=== PATIENT | female | born 1985 | race Caucasian/White ===

== ENCOUNTER 2017-04-10 01:18 | Observation (INO) | payer OTHER ==
[2017-04-10] MEDS ORDERED: Penicillin G Potassium 5 MILLUNITS in Sodium Chloride 0.9% 50 ML IV ONE (03:30)
[2017-04-10] MEDS ORDERED: Sodium Chloride 0.9% 10 ML Syringe FLUSH PRN (04:05)
[2017-04-10] MEDS ORDERED: Ondansetron 4 MG Tab.DIS PO PRN (04:05)
[2017-04-10] MEDS ORDERED: fentaNYL 100 MCG/2 ML SDV IVPUSH PRN (04:05)
--- NOTE | 2017-04-10 04:16 | PCM.LDHP ---
L&D History of Present Illness - General Date of Service: 04/10/17 (labor) Admit Problem/Dx: Patient Status Order with Admit Dx/Problem 04/10/17 04:05 Patient Status [ADT] Routine Admission Diagnosis/Problem Admission Diagnosis/Problem - planned Source of Information: Patient History Limitations: Reports: No Limitations - History of Present Illness Timing/Duration: Reports: minutes: (3) Location, : Reports: Abdomen Quality: Reports: Pressure Severity: Moderate Improves with: Reports: Movement Worsens with: Reports: None - Related Data Allergies/Adverse Reactions: Allergies Allergy/AdvReac Type Severity Reaction Status Date / Time No Known Allergies Allergy Verified 05/24/15 20:52 Home Medications: Home Meds Vit W-Ca,Fe,FA(<1 mg) [ Vitamins] 1 tab PO DAILY 05/24/15 [ History] Ranitidine HCl [Zantac] 150 mg PO DAILY 12/13/16 [History] Labetalol [Normodyne] 100 mg PO BID #60 tab 03/04/17 [Rx] Past Medical History HEENT History: Reports: Impaired Vision Other Genitourinary History: Recent UIT. 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 Psychiatric History: Reports: Anxiety Endocrine/Metabolic History: Reports: Diabetes, Gestational Other Endocrine/Metabolic History: GD in first . - Infectious Disease History Infectious Disease History: Reports: Chicken Pox Social & Family History - Family History Family Medical History: Noncontributory - Tobacco Use Smoking Status *Q: Never Smoker Years of Tobacco use: 5 Packs/Tins Daily: 0.2 Used Tobacco, but Quit: Yes Month Tobacco Last Used: August Second Hand Smoke Exposure: No - Caffeine Use Caffeine Use: Reports: Coffee - Alcohol Use Days Per Week of Alcohol Use: 0 - Recreational Drug Use Recreational Drug Use: No H&P Review of Systems - Review of Systems: Review Of Systems: See Below General: Reports: Decreased Appetite HEENT: Reports: No Symptoms Pulmonary: Reports: No Symptoms Cardiovascular: Reports: No Symptoms Gastrointestinal: Reports: No Symptoms Genitourinary: Reports: No Symptoms Musculoskeletal: Reports: No Symptoms Skin: Reports: No Symptoms Psychiatric: Reports: No Symptoms Neurological: Reports: No Symptoms Hematologic/Lymphatic: Reports: No Symptoms Immunologic: Reports: No Symptoms L&D Exam - Exam Exam: See Below - Vital Signs Vital Signs: Last Vital Signs Temp 98.3 F 04/10/17 01:23 Pulse 98 04/10/17 01:23 Resp 20 04/10/17 01:23 BP 139/82 04/10/17 01:23 Pulse Ox Weight: 265 lb - OB Specific Contraction Frequency (min): 1.5-4 Contraction Intensity: Mild to Moderate Heart Rate (FHR) Variability: Moderate (6-25 bmp) Presentation: Vertex - Lara Score Lara Score Cervix Position: Anterior Lara Score Consistency: Soft Lara Score Effacement: 51-70% Lara Score Dilation: 3-4 cm Lara Score 's Station: -2 Lara Score Total: 9 - Exam General: Alert, Oriented HEENT: PERRLA, Mucosa Moist & [place] Neck: Supple Lungs: Clear to Auscultation, Normal Respiratory Effort Cardiovascular: Regular Rate, Regular Rhythm GI/Abdominal Exam: Normal Bowel Sounds, Soft Genitourinary: Normal external exam, Cervical dilitation, Enlarged uterus Back Exam: Normal Inspection Extremities: Normal Inspection, Normal Range of Motion, Normal Capillary Refill Skin: Warm, Intact Neurological: Reflexes Equal Bilateral Psychiatric: Alert, Normal Affect, Normal Mood - Patient Data Lab Results Last 24 hrs: Laboratory Results - last 24 hr 04/10/17 Range/Units 01:24 Urine Color Yellow Urine Appearance Clear Urine pH 7.0 (4.5-8.0) Ur Specific [place] 1.010 (1.008-1.030) Urine Protein Negative (NEGATIVE) mg/dL Urine Glucose (UA) Normal (NEGATIVE) mg/dL Urine Ketones Negative (NEGATIVE) mg/dL Urine Occult Blood Negative (NEGATIVE) Urine Nitrite Negative (NEGATIVE) Urine Bilirubin Negative (NEGATIVE) Urine Urobilinogen Normal (NORMAL) mg/dL Ur Leukocyte Esterase Negative (NEGATIVE) Urine RBC 0-5 (0-5) Urine WBC 0-5 (0-5) Ur Epithelial Cells Few Amorphous Sediment Not seen Urine Bacteria Not seen Urine Mucus Not seen - Problem List (1) Positive GBS test SNOMED Code(s): 5350459029572 ICD Code: B95.1 - STREPTOCOCCUS, GROUP B, CAUSING DISEASES CLASSD ELSWHR Status: Acute Current Visit: Yes (2) Active labor at term SNOMED Code(s): 21795688 ICD Code: [id number] - Status: Acute Current Visit: Yes (3) PIH ( induced hypertension), antepartum SNOMED Code(s): 00452282 ICD Code: O13.9 - GESTATIONAL HTN W/O SIGNIFICANT PROTEINURIA, UNSP TRIMESTER Status: Acute Current Visit: No (4) SNOMED Code(s): 02267520 ICD Code: Z34.90 - ENCNTR FOR SUPRVSN OF NORMAL , UNSP, UNSP TRIMESTER Status: Acute Current Visit: Yes Qualifiers: Weeks of gestation: 40 weeks Qualified Code(s): Z3A.40 - 40 weeks gestation of Problem List Initiated/Reviewed/Updated: Yes Orders Last 24hrs: Active Orders 24 hr Category Date Time Status Patient Status [ADT] Routine ADT 04/10/17 04:05 Ordered Antiembolic Devices [RC] .Routine Care 04/10/17 04:08 Ordered Bedrest Bathroom Privileges [RC] ASDIRECTED Care 04/10/17 04:05 Ordered Communication Order [RC] ASDIRECTED Care 04/10/17 04:05 Ordered Heart Tones [RC] PER UNIT ROUTINE Care 04/10/17 04:05 Ordered Notify Provider Vital Signs [RC] PRN Care 04/10/17 04:05 Ordered Notify Provider [RC] PRN Care 04/10/17 04:05 Ordered OB Check [OM.PC] Click to Edit Care 04/10/17 01:24 Ordered Up ad Ame [RC] ASDIRECTED Care 04/10/17 04:05 Ordered VTE/DVT Education [RC] Click to Edit Care 04/10/17 04:08 Ordered Vital Signs [RC] PER UNIT ROUTINE Care 04/10/17 04:05 Ordered Regular Diet [DIET] Diet 04/10/17 Breakfast Ordered CBC WITH AUTO DIFF [HEME] Routine Lab 04/10/17 03:46 Ordered UA W/MICROSCOPIC [URIN] Routine Lab 04/10/17 03:48 Ordered Ondansetron [Zofran ODT] Med 04/10/17 04:05 Ordered 4 mg PO Q4H PRN Penicillin G Potassium [Pfizerpen] 2.5 millunits Med 04/10/17 08:00 Active Sodium Chloride 0.9% [Normal Saline] 50 ml IV Q4H Sodium Chloride 0.9% [Saline Flush] Med 04/10/17 04:05 Ordered 10 ml FLUSH ASDIRECTED PRN fentaNYL [Sublimaze] Med 04/10/17 04:05 Ordered 100 mcg IVPUSH Q1H PRN DVT/VTE Prophylaxis Reflex [OM.PC] Routine Oth 04/10/17 04:05 Ordered Saline Lock Insert [OM.PC] Routine Oth 04/10/17 04:05 Ordered Resuscitation Status Routine Resus Stat 04/10/17 04:05 Ordered Medication Orders Fentanyl (Sublimaze) 100 mcg IVPUSH Q1H PRN PRN Reason: Pain (moderate 4-6) Penicillin G Potassium 2.5 (millunits/ Sodium Chloride) 50 mls @ 100 mls/hr IV Q4H SHADY Ondansetron HCl (Zofran Odt) 4 mg PO Q4H PRN PRN Reason: Nausea/Vomiting Sodium Chloride (Saline Flush) 10 ml FLUSH ASDIRECTED PRN PRN Reason: Keep Vein Open Assessment/Plan Comment:: 04/10/17 31 year old who is 40 1/7 weeks gestation based on LMP and early us presents in active labor. Had contraction all day yesterday starting at 0930. Went to bed and awoke at 0000 with strong hard contractions which have steadily increased over the past several hours.She presented to the hospital at about 0100 and was monitored for several hours and became increasingly uncomfortable. Staff reported she was dilated to 3. She is GBS positive so admitted for early labor and treatment of GBS. My CE: /-2, change since clinic visit on . SHe has also been treated for PIH and has been off week for several weeks. IS feeling well and blood pressure has been well controlled. Lab: GBS pos, PCN started ABO A pos HIV neg Rubella immune Plan: Treatment of GBS Pain management per her request Plan for vaginal delivery later today
[2017-04-10] MEDS ORDERED: Misoprostol 50 MCG (1/2 of 100 MCG) Tab ONE (06:12)
[2017-04-10] MEDS ORDERED: Misoprostol 100 MCG Tab PO PRN ×2 (06:12)
--- NOTE | 2017-04-10 06:27 | PCM.PNLD ---
Labor Progress Note - VS & Meds Vital Signs: Last Vital Signs Temp 98.3 F 04/10/17 01:23 Pulse 98 04/10/17 01:23 Resp 20 04/10/17 01:23 BP 139/82 04/10/17 01:23 Pulse Ox Active Medications: Current Medications Fentanyl (Sublimaze) 100 mcg IVPUSH Q1H PRN PRN Reason: Pain (moderate 4-6) Penicillin G Potassium 2.5 (millunits/ Sodium Chloride) 50 mls @ 100 mls/hr IV Q4H SHADY Labetalol HCl (Normodyne) 100 mg PO BID SHADY Misoprostol (Cytotec) 50 mcg PO ONETIME PRN PRN Reason: cervical ripening Misoprostol (Cytotec) 25 mcg PO Q3H PRN PRN Reason: cervical ripening Ondansetron HCl (Zofran Odt) 4 mg PO Q4H PRN PRN Reason: Nausea/Vomiting Sodium Chloride (Saline Flush) 10 ml FLUSH ASDIRECTED PRN PRN Reason: Keep Vein Open Discontinued Medications Penicillin G Potassium 5 (millunits/ Sodium Chloride) 50 mls @ 100 mls/hr IV ONETIME ONE Stop: 04/10/17 03:59 Last Admin: 04/10/17 04:04 Dose: 100 mls/hr Misoprostol (Cytotec) Confirm Administered Dose 50 mcg .ROUTE .STK-MED ONE Stop: 04/10/17 06:13 - Uterine Contractions Uterine Monitoring Mode: None in Use Contraction Frequency (min): x4 Contraction Intensity: Mild to Moderate Uterine Resting Tone: Soft - Monitoring Monitor Mode: Doppler/Auscultation Heart Rate (FHR) Baseline: 126 Heart Rate (FHR) Variability: Moderate (6-25 bmp) Accelerations: Present, 15x15 Decelerations: None Strip Review: Category I - Vaginal Exam Dilation (cm): 2 Effacement (Percent): 75 Station: Ballotable Cervical Position: Anterior Sterile Vaginal Exam Performed By: Iveth Mahoney Vaginal Exam Comment: Per Marie Mahoney, cervix feels more like 2cm rather than 3cm on this check. - Labor Progress (Free Text) Labor Progress: The internal os is finally dilating some. Alisa feels lots of pressure after being in the tub the past hour. Baby is still high. Contractions were coupling and about 3 minutes apart. FHT 120 with accelerations. Plan: Misoprostol 50 MCG orally now and then 25 mcg every 3 hours until she is in active labor or she ruptures. Order for IV medication placed if she would like something.
[2017-04-10] MEDS ORDERED: Misoprostol 25 MCG (1/4 of 100 MCG) Tab PO PRN (07:09)
[2017-04-10] MEDS: Penicillin G Potassium 2.5 MILLUNITS in Sodium Chloride 0.9% 50 ML IV SCH ×2 (08:03→14:03)
[2017-04-10] MEDS ORDERED: Labetalol 100 MG Tab PO SCH (09:00)
[2017-04-10] MEDS ORDERED: Zolpidem 5 MG Tab PO ONE (10:15)
--- NOTE | 2017-04-10 13:36 | PCM.PNLD ---
Labor Progress Note - VS & Meds Vital Signs: Last Vital Signs Temp 36.3 C 04/10/17 07:17 Pulse 81 04/10/17 08:41 Resp 18 04/10/17 07:17 BP 110/78 04/10/17 08:41 Pulse Ox 99 04/10/17 07:17 Active Medications: Current Medications Fentanyl (Sublimaze) 100 mcg IVPUSH Q1H PRN PRN Reason: Pain (moderate 4-6) Penicillin G Potassium 2.5 (millunits/ Sodium Chloride) 50 mls @ 100 mls/hr IV Q4H [facility] Last Admin: 04/10/17 08:03 Dose: 100 mls/hr Labetalol HCl (Normodyne) 100 mg PO BID [facility] Last Admin: 04/10/17 08:41 Dose: Not Given Misoprostol (Cytotec) 25 mcg PO Q3H PRN PRN Reason: cervical ripening Last Admin: 04/10/17 09:19 Dose: 25 mcg Ondansetron HCl (Zofran Odt) 4 mg PO Q4H PRN PRN Reason: Nausea/Vomiting Sodium Chloride (Saline Flush) 10 ml FLUSH ASDIRECTED PRN PRN Reason: Keep Vein Open Discontinued Medications Penicillin G Potassium 5 (millunits/ Sodium Chloride) 50 mls @ 100 mls/hr IV ONETIME ONE Stop: 04/10/17 03:59 Last Admin: 04/10/17 04:04 Dose: 100 mls/hr Misoprostol (Cytotec) 50 mcg PO ONETIME PRN PRN Reason: cervical ripening Last Admin: 04/10/17 06:21 Dose: 50 mcg Misoprostol (Cytotec) 25 mcg PO Q3H PRN PRN Reason: cervical ripening Misoprostol (Cytotec) Confirm Administered Dose 50 mcg .ROUTE .STK-MED ONE Stop: 04/10/17 06:13 Last Admin: 04/10/17 06:22 Dose: Not Given Zolpidem Tartrate (Ambien) 10 mg PO ONETIME ONE Stop: 04/10/17 10:16 Last Admin: 04/10/17 10:11 Dose: 10 mg - Uterine Contractions Uterine Monitoring Mode: External [place] Contraction Frequency (min): occasional Contraction Duration (sec): 50-70 Contraction Intensity: Mild Uterine Resting Tone: Soft - Monitoring Monitor Mode: Doppler/Auscultation Heart Rate (FHR) Baseline: 126 Heart Rate (FHR) Variability: Moderate (6-25 bmp) Accelerations: Present, 15x15 Decelerations: None Strip Review: Category I - Vaginal Exam Dilation (cm): 2-3 Effacement (Percent): 40 Station: Ballotable Cervical Position: Posterior Sterile Vaginal Exam Performed By: Kaila Peralta - Labor Progress (Free Text) Labor Progress: 04/10/2017 Labor has stalled SVE unchanged Patient has decided to go home FHTs category one Contractions irregular and no longer strong Patient educated to return if active labor or rupture of membranes
[2017-04-10 14:05] VITALS: BP 127/60
== END 2017-04-10 14:00 | disposition home or self-care (01) ==
LOC: JP.OBCHECK 01:18 → JP.OB 03:15
PROVIDERS: ADMIT Nurse Practitioner Family; ATTEND Nurse Practitioner Family
DX: O99.820 Streptococcus B carrier state complicating pregnancy (principal); O13.3 Gestational [pregnancy-induced] hypertension without significant proteinuria, third trimester; Z3A.40 40 weeks gestation of pregnancy
CPT/HCPCS: 36415; 81001; 85025; 99211; A9270; J2540; J7050; 96365; 96375; G0378

== ENCOUNTER 2017-04-11 03:58 | Inpatient (IN) | payer OTHER ==
[2017-04-11] MEDS ORDERED: Sodium Chloride 0.9% 10 ML Syringe FLUSH PRN ×2 (04:38→05:53)
[2017-04-11] MEDS ORDERED: Penicillin G Potassium 5 MILLUNITS in Sodium Chloride 0.9% 50 ML IV ONE (04:39)
[2017-04-11] MEDS ORDERED: Sodium Chloride 0.9% 1,000 ML IV SCH (04:45)
[2017-04-11] MEDS ORDERED: fentaNYL 100 MCG/2 ML SDV IVPUSH PRN (05:53)
[2017-04-11] MEDS ORDERED: Ondansetron 4 MG/2 ML SDV IV PRN (05:53)
[2017-04-11] MEDS ORDERED: Lactated Ringers 1,000 ML IV ONE (06:00)
--- NOTE | 2017-04-11 06:13 | PCM.LDHP ---
L&D History of Present Illness - General Date of Service: 04/11/17 Admit Problem/Dx: Patient Status Order with Admit Dx/Problem 04/11/17 05:53 Patient Status [ADT] Routine Admission Diagnosis/Problem Admission Diagnosis/Problem Source of Information: Patient History Limitations: Reports: No Limitations - Related Data Allergies/Adverse Reactions: Allergies Allergy/AdvReac Type Severity Reaction Status Date / Time No Known Allergies Allergy Verified 05/24/15 20:52 Home Medications: Home Meds Vit W-Ca,Fe,FA(<1 mg) [ Vitamins] 1 tab PO DAILY 05/24/15 [ History] Ranitidine HCl [Zantac] 150 mg PO DAILY 12/13/16 [History] Labetalol [Normodyne] 100 mg PO BID #60 tab 03/04/17 [Rx] Past Medical History HEENT History: Reports: Impaired Vision Other Genitourinary History: Recent UIT. 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 Psychiatric History: Reports: Anxiety Endocrine/Metabolic History: Reports: Diabetes, Gestational Other Endocrine/Metabolic History: GD in first . - Infectious Disease History Infectious Disease History: Reports: Chicken Pox - Past Surgical History Female Surgical History: Reports: None Social & Family History - Family History Family Medical History: Noncontributory - Tobacco Use Smoking Status *Q: Never Smoker Years of Tobacco use: 5 Packs/Tins Daily: 0.2 Used Tobacco, but Quit: Yes Month Tobacco Last Used: August Second Hand Smoke Exposure: No - Caffeine Use Caffeine Use: Reports: Coffee - Alcohol Use Days Per Week of Alcohol Use: 0 - Recreational Drug Use Recreational Drug Use: No H&P Review of Systems - Review of Systems: Review Of Systems: See Below General: Reports: No Symptoms HEENT: Reports: No Symptoms Pulmonary: Reports: No Symptoms Cardiovascular: Reports: No Symptoms Gastrointestinal: Reports: No Symptoms Genitourinary: Reports: No Symptoms Musculoskeletal: Reports: No Symptoms Skin: Reports: No Symptoms Psychiatric: Reports: No Symptoms Neurological: Reports: No Symptoms Hematologic/Lymphatic: Reports: No Symptoms Immunologic: Reports: No Symptoms L&D Exam - Exam Exam: See Below - Vital Signs Vital Signs: Last Vital Signs Temp Pulse Resp 18 04/11/17 04:13 BP Pulse Ox Weight: 120.202 kg - OB Specific Contraction Intensity: Moderate to Strong Movement: Active Heart Tones: Present Heart Rate (FHR) Variability: Moderate (6-25 bmp) - Lara Score Lara Score Cervix Position: Posterior Lara Score Consistency: Soft Lara Score Effacement: 51-70% Lara Score Dilation: 3-4 cm Lara Score 's Station: -3 Lara Score Total: 6 - Exam General: Alert, Oriented HEENT: PERRLA, Conjunctiva Clear, EACs Clear, EOMI, Hearing Intact, Mucosa Moist & [place], Nares Patent, Normal Nasal Septum, Posterior Pharynx Clear, TMs Clear Neck: Supple, Trachea Midline Lungs: Clear to Auscultation, Normal Respiratory Effort Cardiovascular: Regular Rate, Regular Rhythm GI/Abdominal Exam: Normal Bowel Sounds, Soft, Non-Tender, No Organomegaly, No Distention, No Abnormal Bruit, No Mass, Pelvis Stable Rectal Exam: Normal Exam, Normal Rectal Tone Genitourinary: Normal external exam, Normal bimanual exam, Normal speculum exam Back Exam: Normal Inspection, Full Range of Motion Extremities: Normal Inspection, Normal Range of Motion, Non-Tender, No Pedal Edema, Normal Capillary Refill Skin: Warm, Dry, Intact Neurological: Cranial Nerves Intact, Reflexes Equal Bilateral Psychiatric: Alert, Normal Affect, Normal Mood - Patient Data Lab Results Last 24 hrs: Laboratory Results - last 24 hr 04/11/17 04/11/17 Range/Units 04:18 04:18 Urine Color Yellow Urine Appearance Clear Urine pH 6.5 (4.5-8.0) Ur Specific [place] 1.005 L (1.008-1.030) Urine Protein Negative (NEGATIVE) mg/dL Urine Glucose (UA) Normal (NEGATIVE) mg/dL Urine Ketones Negative (NEGATIVE) mg/dL Urine Occult Blood Large (NEGATIVE) Urine Nitrite Negative (NEGATIVE) Urine Bilirubin Negative (NEGATIVE) Urine Urobilinogen Normal (NORMAL) mg/dL Ur Leukocyte Esterase Negative (NEGATIVE) Urine RBC 5-10 H (0-5) Urine WBC 0-5 (0-5) Ur Epithelial Cells Few Amorphous Sediment Few Urine Bacteria Not seen Urine Mucus Few Urine Opiates Screen Negative (NEGATIVE) Ur Oxycodone Screen Negative (NEGATIVE) Urine Methadone Screen Negative (NEGATIVE) Ur Propoxyphene Screen Negative (NEGATIVE) Ur Barbiturates Screen Negative (NEGATIVE) Ur Tricyclics Screen Negative (NEGATIVE) Ur Phencyclidine Scrn Negative (NEGATIVE) Ur Amphetamine Screen Negative (NEGATIVE) U Methamphetamines Scrn Negative (NEGATIVE) Urine MDMA Screen Negative (NEGATIVE) U Benzodiazepines Scrn Negative (NEGATIVE) U Cocaine Metab Screen Negative (NEGATIVE) U Marijuana (THC) Screen Negative (NEGATIVE) - Problem List (1) SROM (spontaneous rupture of membranes) SNOMED Code(s): 034290296 ICD Code: [id number] - Status: Acute Current Visit: Yes (2) Active labor at term SNOMED Code(s): 34491425 ICD Code: VRW6290 - Status: Acute Current Visit: No (3) Positive GBS test SNOMED Code(s): 8670969968449 ICD Code: B95.1 - STREPTOCOCCUS, GROUP B, CAUSING DISEASES CLASSD ELSWHR Status: Acute Current Visit: No (4) SNOMED Code(s): 11874575 ICD Code: Z34.90 - ENCNTR FOR SUPRVSN OF NORMAL , UNSP, UNSP TRIMESTER Status: Acute Current Visit: No Qualifiers: Weeks of gestation: 40 weeks Qualified Code(s): Z3A.40 - 40 weeks gestation of Problem List Initiated/Reviewed/Updated: Yes Orders Last 24hrs: Active Orders 24 hr Category Date Time Status Patient Status [ADT] Routine ADT 04/11/17 05:53 Ordered Ambulate [RC] PER UNIT ROUTINE Care 04/11/17 05:53 Ordered Communication Order [RC] ASDIRECTED Care 04/11/17 05:53 Ordered Heart Tones [RC] PER UNIT ROUTINE Care 04/11/17 05:53 Ordered Local Anesthetic Infusion Pump [RC] ASDIRECTED Care 04/11/17 06:00 Ordered Notify Provider Vital Signs [RC] PRN Care 04/11/17 05:53 Ordered Notify Provider [RC] PRN Care 04/11/17 05:53 Ordered OB Check [OM.PC] Click to Edit Care 04/11/17 04:17 Ordered PCEA Epidural [RC] ASDIRECTED Care 04/11/17 06:00 Ordered Peripheral IV Care [RC] . DIRECTED Care 04/11/17 04:38 Active Up ad Ame [RC] ASDIRECTED Care 04/11/17 05:53 Ordered VTE/DVT Education [RC] Click to Edit Care 04/11/17 05:57 Ordered Vital Signs [RC] PER UNIT ROUTINE Care 04/11/17 05:53 Ordered CBC WITH AUTO DIFF [HEME] Routine Lab 04/11/17 06:00 Ordered Acetaminophen [Tylenol] Med 04/11/17 05:53 Ordered 650 mg PO Q4H PRN Lactated Ringers [Ringers, Lactated] 1,000 ml Med 04/11/17 06:00 Ordered IV .BOLUS Ondansetron [Zofran] Med 04/11/17 05:53 Ordered 4 mg IV Q4H PRN Oxytocin/Normal Saline [Pitocin in NS 20 Units/1,000 ML Med 04/11/17 06:00 Ordered ] 20 unit in 1,000 ml IV TITRATE Penicillin G Potassium [Pfizerpen] 2.5 millunits Med 04/11/17 09:00 Active Sodium Chloride 0.9% [Normal Saline] 50 ml IV Q4H Sodium Chloride 0.9% [Normal Saline] 1,000 ml Med 04/11/17 04:45 Active IV ASDIRECTED Sodium Chloride 0.9% [Saline Flush] Med 04/11/17 04:38 Active 10 ml FLUSH ASDIRECTED PRN Sodium Chloride 0.9% [Saline Flush] Med 04/11/17 05:53 Ordered 10 ml FLUSH ASDIRECTED PRN fentaNYL [Sublimaze] Med 04/11/17 05:53 Ordered 100 mcg IVPUSH Q1H PRN DVT/VTE Prophylaxis Reflex [OM.PC] Routine Oth 04/11/17 05:53 Ordered Epidural Catheter Management [OM.PC] Routine Oth 04/11/17 06:00 Ordered Peripheral IV Insertion Adult [OM.PC] Routine Oth 04/11/17 04:38 Ordered Saline Lock Insert [OM.PC] Routine Oth 04/11/17 05:53 Ordered Resuscitation Status Routine Resus Stat 04/11/17 05:53 Ordered Medication Orders Acetaminophen (Tylenol) 650 mg PO Q4H PRN PRN Reason: Pain (Mild 1-3) and fever Fentanyl (Sublimaze) 100 mcg IVPUSH Q1H PRN PRN Reason: Pain (moderate 4-6) Sodium Chloride (Normal Saline) 1,000 mls @ 150 mls/hr IV ASDIRECTED SHADY Last Admin: 02/09/18 05:19 Dose: 150 mls/hr Penicillin G Potassium 2.5 (millunits/ Sodium Chloride) 50 mls @ 100 mls/hr IV Q4H SHADY Oxytocin/Sodium Chloride (Pitocin In Ns 20 Units/1,000 Ml) 20 unit in 1,000 mls @ 6 mls/hr IV TITRATE SHADY; 2 MUNITS/MIN PRN Reason: Protocol Lactated Ringer's (Ringers, Lactated) 1,000 mls @ 999 mls/hr IV .BOLUS ONE Stop: 04/11/17 07:00 Ondansetron HCl (Zofran) 4 mg IV Q4H PRN PRN Reason: Nausea/Vomiting Sodium Chloride (Saline Flush) 10 ml FLUSH ASDIRECTED PRN PRN Reason: Keep Vein Open Sodium Chloride (Saline Flush) 10 ml FLUSH ASDIRECTED PRN PRN Reason: Keep Vein Open Assessment/Plan Comment:: 04/11/2017 31 yo at 40 2/7 weeks gestation here after SROM at home around 0315 SVE-3/60-70%/-3 Contractions stronger, still irregular FHTs category one Bishops Score-6 GBS positive-antibiotics initiated Plan- Augmentation with Pitocin per protocol Monitor for active labor Monitor FHTS Pain management per patient request Pen G for GBS per protocol Plan and anticipate a vaginal delivery
[2017-04-11] MEDS ORDERED: ePHEDrine/Normal Saline 50 MG/5 ML Syringe ONE (06:54)
[2017-04-11] MEDS ORDERED: Ropivacaine 100 ML ONE (07:28)
[2017-04-11] MEDS ORDERED: Lactated Ringers 1,000 ML IV SCH (07:30)
[2017-04-11] MEDS ORDERED: Naloxone 0.4 MG/ML SDV IVPUSH PRN (07:32)
[2017-04-11] MEDS ORDERED: Ropivacaine 100 ML EPIDUR SCH (07:32)
[2017-04-11] MEDS ORDERED: ePHEDrine/Normal Saline 50 MG/5 ML Syringe IVPUSH PRN (07:32)
--- NOTE | 2017-04-11 08:56 | PCM.PNLD ---
Labor Progress Note - VS & Meds Vital Signs: Last Vital Signs Temp 97.9 F 04/11/17 05:35 Pulse 94 04/11/17 07:30 Resp 18 04/11/17 07:30 BP 119/78 04/11/17 07:30 Pulse Ox 99 04/11/17 07:30 Active Medications: Current Medications Acetaminophen (Tylenol) 650 mg PO Q4H PRN PRN Reason: Pain (Mild 1-3) and fever Ephedrine Sulfate (Ephedrine In Ns) 5 - 10 mg IVPUSH ASDIRECTED PRN PRN Reason: SYSTOLIC BP LESS THAN 100 Last Admin: 04/11/17 07:05 Dose: 5 mg Fentanyl (Sublimaze) 100 mcg IVPUSH Q1H PRN PRN Reason: Pain (moderate 4-6) Last Admin: 04/11/17 06:18 Dose: 100 mcg Sodium Chloride (Normal Saline) 1,000 mls @ 150 mls/hr IV ASDIRECTED SHADY Last Admin: 04/11/17 05:19 Dose: 150 mls/hr Penicillin G Potassium 2.5 (millunits/ Sodium Chloride) 50 mls @ 100 mls/hr IV Q4H SHADY Oxytocin/Sodium Chloride (Pitocin In Ns 20 Units/1,000 Ml) 20 unit in 1,000 mls @ 6 mls/hr IV TITRATE SHADY; 2 MUNITS/MIN PRN Reason: Protocol Last Admin: 04/11/17 07:44 Dose: 1 munits/min, 3 mls/hr Lactated Ringer's (Ringers, Lactated) 1,000 mls @ 100 mls/hr IV ASDIRECTED SHADY Ropivacaine (Naropin 0.2%) 100 mls @ 0 mls/hr EPIDUR ASDIRECTED SHADY; Titrate PRN Reason: Protocol Last Admin: 04/11/17 07:00 Dose: 12 ml/hr, 12 mls/hr Naloxone HCl (Narcan) 0.1 mg IVPUSH Q5M PRN PRN Reason: IF RESP RATE LESS THAN 6 Ondansetron HCl (Zofran) 4 mg IV Q4H PRN PRN Reason: Nausea/Vomiting Sodium Chloride (Saline Flush) 10 ml FLUSH ASDIRECTED PRN PRN Reason: Keep Vein Open Sodium Chloride (Saline Flush) 10 ml FLUSH ASDIRECTED PRN PRN Reason: Keep Vein Open Discontinued Medications Ephedrine Sulfate (Ephedrine In Ns) Confirm Administered Dose 50 mg .ROUTE .STK- MED ONE Stop: 04/11/17 06:55 Penicillin G Potassium 5 (millunits/ Sodium Chloride) 50 mls @ 100 mls/hr IV ONETIME ONE Stop: 04/11/17 05:08 Last Admin: 04/11/17 05:17 Dose: 100 mls/hr Lactated Ringer's (Ringers, Lactated) 1,000 mls @ 999 mls/hr IV .BOLUS ONE Stop: 04/11/17 07:00 Last Admin: 04/11/17 06:10 Dose: 999 mls/hr Ropivacaine (Naropin 0.2%) Confirm Administered Dose 100 mls @ as directed .ROUTE .STK-MED ONE Stop: 04/11/17 07:29 - Uterine Contractions Uterine Monitoring Mode: External [place] Contraction Frequency (min): indeterminate due to positioning Contraction Duration (sec): 30-50 Contraction Intensity: Strong Uterine Resting Tone: Soft - Monitoring Monitor Mode: Doppler/Auscultation Heart Rate (FHR) Baseline: 120 Heart Rate (FHR) Variability: Moderate (6-25 bmp) Decelerations: None Strip Review: Category I - Vaginal Exam Dilation (cm): 10 Effacement (Percent): 100 Station: 0 Cervical Position: Anterior Sterile Vaginal Exam Performed By: Iveth Mahoney Vaginal Exam Comment: complete but just zero station - Labor Progress (Free Text) Labor Progress: Will have her labor down over the next 30-60 minutes and then push
[2017-04-11] MEDS ORDERED: Penicillin G Potassium 2.5 MILLUNITS in Sodium Chloride 0.9% 50 ML IV SCH (09:00)
[2017-04-11] MEDS ORDERED: Witch Hazel Medicated Pads 100/Jar TOP PRN (10:16)
[2017-04-11] MEDS ORDERED: Benzocaine 20% Top Spray 56 GM Bottle TOP PRN (10:16)
[2017-04-11] MEDS ORDERED: Acetaminophen/Codeine 300-30 MG Tab PO PRN (10:16)
[2017-04-11] MEDS ORDERED: Lanolin 100% Cream 40 GM Tube TOP PRN (10:16)
--- NOTE | 2017-04-11 10:25 | PCM.DEL ---
L & D Note - General Info Date of Service: 04/11/17 (Delivery) Mother's Due Date: 04/10/17 - Delivery Note Labor: Augmented by Oxytocin Delivery Outcome: Livebirth Infant Delivery Method: Spontaneous Vaginal Delivery-Single Infant Delivery Mode: Spontaneous Presentation: Vertex Nuchal Cord: None Anesthesia Type: Epidural Amniotic Fluid Description: Clear Episiotomy Type: None Laceration: 2nd Degree, Perineal Suture size: 3-0 Placenta: Intact, Spontaneous Cord: 3 Vessels Estimated Blood Loss: 300 [place]: Bulb Syringe, Stimulated, Warmed Provider: Iveth Mahoney Score 1 min: 9 Score 5 min: 10 Second Stage Interventions: Reports: Second Nurse Reviewed Heart Tones, Pushing Effectively, Pushing, Squat Bar Pulling on Device, Pushing, Stirrups/ Leg Supports Delivery Comments (Free Text/Narrative):: This 31 year old who is 40 1/7 weeks gestation delivered at 0930 in [place]. The was placed on mother's abdomen where he cried spontaneously at time of delivery. Apgars 9 and 10, three vessel cord. Placenta was expressed spontaneously intact. A second degree perineal tear was repaired with 3-0 vicryl. no lacerations of the cervix, vagina or rectum were found. EBL 300ml Weight 9-13.9 Mother and baby to post and nursery in stable condition first stage 0086-6785 second stage 0792-2926, first push 0922 third stage 5795-3657 Induction Criteria - Lara Score Lara Score Dilation: 3-4 cm Lara Score Effacement: 60-70% Lara Score 's Station: -1 ,0 Lara Score Consistency: Soft Lara Score Cervix Position: Anterior Lara Score Total: 10 Lara Score Presenting Part: Reports: Cephalic - Augmentation Estimated Pelvis: Reports: Adequate Weight Estimated:: Reports: AGA Reassuring Monitoring Strip: Yes Absence of Tachy Systole: Yes - General Info Date of Service: 04/11/17 Admission Dx/Problem (Free Text): Patient Status Order with Admit Dx/Problem 04/11/17 05:53 Patient Status [ADT] Routine Admission Diagnosis/Problem Admission Diagnosis/Problem Functional Status: Reports: Pain Controlled - Review of Systems General: Reports: No Symptoms HEENT: Reports: No Symptoms Pulmonary: Reports: No Symptoms Cardiovascular: Reports: No Symptoms Gastrointestinal: Reports: No Symptoms Genitourinary: Reports: No Symptoms Musculoskeletal: Reports: No Symptoms Skin: Reports: No Symptoms Neurological: Reports: No Symptoms Psychiatric: Reports: No Symptoms - Patient Data Vitals - Most Recent: Last Vital Signs Temp 97.9 F 04/11/17 05:35 Pulse 94 04/11/17 07:30 Resp 18 04/11/17 07:30 BP 119/78 04/11/17 07:30 Pulse Ox 99 04/11/17 07:30 Weight - Most Recent: 265 lb I&O - Last 24 Hours: Intake & Output 04/10/17 04/11/17 04/11/17 22:59 06:59 14:59 Intake Total 50 Balance 50 Lab Results Last 24 Hours: Laboratory Results - last 24 hr 04/11/17 04/11/17 04/11/17 Range/Units 04:18 04:18 06:00 WBC 8.3 (4.5-11.0) K/uL RBC 4.02 (3.30-5.50) M/uL Hgb 12.0 (12.0-15.0) g/dL Hct 36.8 (36.0-48.0) % MCV 92 (80-98) fL MCH 30 (27-31) pg MCHC 33 (32-36) % Plt Count 251 (150-400) K/uL Neut % (Auto) 65 (36-66) % Lymph % (Auto) 25 (24-44) % [place] % (Auto) 10 H (2-6) % Eos % (Auto) 1 L (2-4) % Baso % (Auto) 0 (0-1) % Urine Color Yellow Urine Appearance Clear Urine pH 6.5 (4.5-8.0) Ur Specific [place] 1.005 L (1.008-1.030) Urine Protein Negative (NEGATIVE) mg/dL Urine Glucose (UA) Normal (NEGATIVE) mg/dL Urine Ketones Negative (NEGATIVE) mg/dL Urine Occult Blood Large (NEGATIVE) Urine Nitrite Negative (NEGATIVE) Urine Bilirubin Negative (NEGATIVE) Urine Urobilinogen Normal (NORMAL) mg/dL Ur Leukocyte Esterase Negative (NEGATIVE) Urine RBC 5-10 H (0-5) Urine WBC 0-5 (0-5) Ur Epithelial Cells Few Amorphous Sediment Few Urine Bacteria Not seen Urine Mucus Few Urine Opiates Screen Negative (NEGATIVE) Ur Oxycodone Screen Negative (NEGATIVE) Urine Methadone Screen Negative (NEGATIVE) Ur Propoxyphene Screen Negative (NEGATIVE) Ur Barbiturates Screen Negative (NEGATIVE) Ur Tricyclics Screen Negative (NEGATIVE) Ur Phencyclidine Scrn Negative (NEGATIVE) Ur Amphetamine Screen Negative (NEGATIVE) U Methamphetamines Scrn Negative (NEGATIVE) Urine MDMA Screen Negative (NEGATIVE) U Benzodiazepines Scrn Negative (NEGATIVE) U Cocaine Metab Screen Negative (NEGATIVE) U Marijuana (THC) Screen Negative (NEGATIVE) Med Orders - Current: Current Medications Acetaminophen (Tylenol) 650 mg PO Q4H PRN PRN Reason: Pain (Mild 1-3) and fever Ephedrine Sulfate (Ephedrine In Ns) 5 - 10 mg IVPUSH ASDIRECTED PRN PRN Reason: SYSTOLIC BP LESS THAN 100 Last Admin: 04/11/17 07:05 Dose: 5 mg Fentanyl (Sublimaze) 100 mcg IVPUSH Q1H PRN PRN Reason: Pain (moderate 4-6) Last Admin: 04/11/17 06:18 Dose: 100 mcg Sodium Chloride (Normal Saline) 1,000 mls @ 150 mls/hr IV ASDIRECTED SHADY Last Admin: 04/11/17 05:19 Dose: 150 mls/hr Oxytocin/Sodium Chloride (Pitocin In Ns 20 Units/1,000 Ml) 20 unit in 1,000 mls @ 6 mls/hr IV TITRATE SHADY; 2 MUNITS/MIN PRN Reason: Protocol Last Admin: 04/11/17 07:44 Dose: 1 munits/min, 3 mls/hr Lactated Ringer's (Ringers, Lactated) 1,000 mls @ 100 mls/hr IV ASDIRECTED SHADY Ropivacaine (Naropin 0.2%) 100 mls @ 0 mls/hr EPIDUR ASDIRECTED SHADY; Titrate PRN Reason: Protocol Last Admin: 04/11/17 07:00 Dose: 12 ml/hr, 12 mls/hr Naloxone HCl (Narcan) 0.1 mg IVPUSH Q5M PRN PRN Reason: IF RESP RATE LESS THAN 6 Ondansetron HCl (Zofran) 4 mg IV Q4H PRN PRN Reason: Nausea/Vomiting Sodium Chloride (Saline Flush) 10 ml FLUSH ASDIRECTED PRN PRN Reason: Keep Vein Open Sodium Chloride (Saline Flush) 10 ml FLUSH ASDIRECTED PRN PRN Reason: Keep Vein Open Discontinued Medications Ephedrine Sulfate (Ephedrine In Ns) Confirm Administered Dose 50 mg .ROUTE .STK- MED ONE Stop: 04/11/17 06:55 Penicillin G Potassium 5 (millunits/ Sodium Chloride) 50 mls @ 100 mls/hr IV ONETIME ONE Stop: 04/11/17 05:08 Last Admin: 04/11/17 05:17 Dose: 100 mls/hr Penicillin G Potassium 2.5 (millunits/ Sodium Chloride) 50 mls @ 100 mls/hr IV Q4H SHADY Last Admin: 04/11/17 08:55 Dose: 100 mls/hr Lactated Ringer's (Ringers, Lactated) 1,000 mls @ 999 mls/hr IV .BOLUS ONE Stop: 04/11/17 07:00 Last Admin: 04/11/17 06:10 Dose: 999 mls/hr Ropivacaine (Naropin 0.2%) Confirm Administered Dose 100 mls @ as directed .ROUTE .STK-MED ONE Stop: 04/11/17 07:29 - Exam General: Alert, Oriented HEENT: Pupils Equal Neck: Supple Lungs: Clear to Auscultation, Normal Respiratory Effort Cardiovascular: Regular Rate, Regular Rhythm GI/Abdominal Exam: Normal Bowel Sounds, Soft, Non-Tender, No Mass (Female) Exam: Cervical Dilatation, Enlarged Uterus, Vaginal Bleeding Back Exam: Normal Inspection, Full Range of Motion Extremities: Normal Inspection, Normal Capillary Refill Skin: Warm, Dry, Intact Neurological: No New Focal Deficit Psy/Mental Status: Alert, Normal Affect, Normal Mood - Problem List & Annotations (1) PIH ( induced hypertension) SNOMED Code(s): 60250174 Code(s): O13.9 - GESTATIONAL HTN W/O SIGNIFICANT PROTEINURIA, UNSP TRIMESTER Status: Acute Current Visit: Yes (2) Normal (single liveborn) SNOMED Code(s): 51122373 Code(s): Z38.2 - SINGLE LIVEBORN INFANT, UNSPECIFIED TO PLACE OF Status: Acute Current Visit: Yes (3) Normal labor and delivery SNOMED Code(s): 37781502 Code(s): O80 - ENCOUNTER FOR FULL-TERM UNCOMPLICATED DELIVERY Status: Acute Current Visit: Yes (4) SNOMED Code(s): 06159658 Code(s): Z34.90 - ENCNTR FOR SUPRVSN OF NORMAL , UNSP, UNSP TRIMESTER Status: Acute Current Visit: Yes Qualifiers: Weeks of gestation: 40 weeks Qualified Code(s): Z3A.40 - 40 weeks gestation of (5) SROM (spontaneous rupture of membranes) SNOMED Code(s): 001048339 Code(s): GSS2695 - Status: Acute Current Visit: Yes (6) Positive GBS test SNOMED Code(s): 1572788761907 Code(s): B95.1 - STREPTOCOCCUS, GROUP B, CAUSING DISEASES CLASSD ELSWHR Status: Acute Current Visit: No (7) Active labor at term SNOMED Code(s): 45576907 Code(s): NXI4222 - Status: Acute Current Visit: Yes - Problem List Review Problem List Initiated/Reviewed/Updated: Yes - My Orders Last 24 Hours: My Active Orders 04/11/17 07:30 Lactated Ringers [Ringers, Lactated] 1,000 ml IV ASDIRECTED 04/11/17 10:16 Patient Status [ADT] Routine Vital Signs [RC] PFP Acetaminophen/Codeine [Tylenol with Codeine No.3 300MG/30MG] 1 tab PO Q4H PRN Benzocaine [Fhrt-D-Mucchou 20% [place]] See Dose Instructions TOP Q4H PRN Ibuprofen [Motrin] 600 mg PO Q6H PRN Lanolin [Lansinoh HPA] 1 gm TOP ASDIRECTED PRN Witch Marcela [Tucks] 1 pad TOP ASDIRECTED PRN Assess Lochia [WOMSER] Per Unit Routine Assess Uterine Involution [WOMSER] Per Unit Routine 04/11/17 10:17 Ice Therapy [OM.PC] Per Unit Routine Perineal Care [OM.PC] Per Unit Routine Peripheral IV Discontinue [OM.PC] Routine Sitz Bath [OM.PC] Per Unit Routine 04/11/17 Lunch Regular Diet [DIET] 04/12/17 05:11 CBC WITH AUTO DIFF [HEME] AM 04/12/17 09:00 Docusate Sodium [Colace] 100 mg PO DAILY - Assessment Assessment:: This 31 year old G5 now P3 without complications. PHI controlled with beta eric 2nd degree perineal tear with repair GBS positive and treated HGB 12, PLT 251 ABO A pos HIV neg Rubella immune - Plan Plan:: 04/11/2017 31 yo at 40 2/7 weeks gestation here after SROM at home around 0315 SVE-360-70%/-3 Contractions stronger, still irregular FHTs category one Bishops Score-6 GBS positive-antibiotics initiated Plan- Augmentation with Pitocin per protocol Monitor for active labor Monitor FHTS Pain management per patient request Pen G for GBS per protocol Plan and anticipate a vaginal delivery 04/11/17 Routine care required 48 hour stay support
[2017-04-11] MEDS: Docusate Sodium 100 MG Cap PO SCH (12:41)
[2017-04-11] MEDS: Acetaminophen 325 MG Tab PO PRN ×2 (14:03→19:47)
--- NOTE | 2017-04-11 18:06 | ANES ---
DATE OF SERVICE: 04/11/2017 LABOR EPIDURAL NOTE I was called at approximately 0611 hours for a young lady who was requesting labor epidural for labor pains. I was at bedside at approximately 0635 hours, the patient was sitting up, talking, appeared somewhat comfortable. History and physical were reviewed with the patient. The patient said she had no known allergies. Risks and benefits discussed with the patient and her . The patient verbalizes that she wishes to proceed with the labor epidural at this time. This is Alisa's 3rd baby. Alisa was then sat at the edge of the bed. Betadine prep x3 to the lumbar region was done. Sterile drape was placed. 1% lidocaine skin wheal and deep was done. A 17-gauge Tuohy needle was then placed to loss resistance at approximately 7 to 7.5 cm. Catheter then was placed without difficulty and left in at approximately 14 cm. A 3 mL test dose was done at this time. Alisa was then laid down with left uterine position done. Alisa was showing no signs or symptoms related to the test dose. I then proceeded to give Alisa 12 mL of 0.25% ropivacaine through the epidural over approximately 5 minutes and then a 0.2% ropivacaine drip was started at 12 mL an hour at approximately 7 o'clock. Alisa did drop her blood pressures a little bit or at least but never got below a systolic of 117, but she was feeling a little lightheaded, so I did give her 5 mg of ephedrine at that time. Please refer to the nurse's notes for vital signs and x4 medications given. Time-out was done prior to starting the procedure at 0640 hours. When I left the bedside, the patient was doing well, blood pressures were stable and the patient was happy with the results of the epidural. Bonifacio Walls CRNA /[id number]
--- NOTE | 2017-04-11 18:42 | ANES ---
DATE OF SERVICE: 04/11/2017 ADDENDUM History and physical reviewed with Alisa and Alisa does have high blood pressure, hypertension related to this that she is currently on labetalol for and some pretty significant acid reflux. Her platelet counts were good and blood pressure was good upon prior to doing epidural. Bonifacio Walls CRNA /[id number]
[2017-04-12] MEDS: Docusate Sodium 100 MG Cap PO SCH ×2 (07:52→08:32)
--- NOTE | 2017-04-12 09:49 | PCM.PNPP ---
- General Info Date of Service: 04/12/17 Admission Dx/Problem (Free Text): Patient Status Order with Admit Dx/Problem 04/11/17 05:53 Patient Status [ADT] Routine Admission Diagnosis/Problem Admission Diagnosis/Problem Functional Status: Reports: Pain Controlled - Review of Systems General: Reports: No Symptoms HEENT: Reports: No Symptoms Pulmonary: Reports: No Symptoms Cardiovascular: Reports: No Symptoms Gastrointestinal: Reports: No Symptoms Genitourinary: Reports: No Symptoms Musculoskeletal: Reports: No Symptoms Skin: Reports: No Symptoms Neurological: Reports: No Symptoms Psychiatric: Reports: No Symptoms - Patient Data Vital Signs - Most Recent: Last Vital Signs Temp 98 F 04/12/17 02:00 Pulse 68 04/12/17 02:00 Resp 18 04/12/17 02:00 BP 120/64 04/12/17 02:00 Pulse Ox 97 04/11/17 22:53 Weight - Most Recent: 265 lb I&O - Last 24 Hours: Intake & Output 04/11/17 04/12/17 04/12/17 22:59 06:59 14:59 Intake Total 400 800 Balance 400 800 Lab Results - Last 24 Hours: Laboratory Results - last 24 hr 04/12/17 Range/Units 05:28 WBC 12.5 H (4.5-11.0) K/uL RBC 3.31 (3.30-5.50) M/uL Hgb 10.2 L (12.0-15.0) g/dL Hct 30.8 L (36.0-48.0) % MCV 93 (80-98) fL MCH 31 (27-31) pg MCHC 33 (32-36) % Plt Count 197 (150-400) K/uL Neut % (Auto) 69 H (36-66) % Lymph % (Auto) 22 L (24-44) % [place] % (Auto) 8 H (2-6) % Eos % (Auto) 1 L (2-4) % Baso % (Auto) 0 (0-1) % Med Orders - Current: Current Medications Acetaminophen (Tylenol) 650 mg PO Q4H PRN PRN Reason: Pain (Mild 1-3) and fever Last Admin: 04/11/17 19:47 Dose: 650 mg Acetaminophen/Codeine Phosphate (Tylenol With Codeine No.3 300mg/30mg) 1 tab PO Q4H PRN PRN Reason: Pain (moderate 4-6) Benzocaine (Ikqd-V-Ujlzqaw 20% [place]) 0 gm TOP Q4H PRN PRN Reason: Perineal Comfort Measure Docusate Sodium (Colace) 100 mg PO DAILY [facility] Last Admin: 04/12/17 08:32 Dose: Not Given Emollient Ointment (Lansinoh Hpa) 0 gm TOP ASDIRECTED PRN PRN Reason: Sore Nipples Fentanyl (Sublimaze) 100 mcg IVPUSH Q1H PRN PRN Reason: Pain (moderate 4-6) Last Admin: 04/11/17 06:18 Dose: 100 mcg Oxytocin/Sodium Chloride (Pitocin In Ns 20 Units/1,000 Ml) 20 unit in 1,000 mls @ 6 mls/hr IV TITRATE SHADY; 2 MUNITS/MIN PRN Reason: Protocol Last Admin: 04/11/17 07:44 Dose: 1 munits/min, 3 mls/hr Lactated Ringer's (Ringers, Lactated) 1,000 mls @ 100 mls/hr IV ASDIRECTED SHADY Last Admin: 04/11/17 07:30 Dose: 100 mls/hr Ibuprofen (Motrin) 600 mg PO Q6H PRN PRN Reason: mild pain or fever Naloxone HCl (Narcan) 0.1 mg IVPUSH Q5M PRN PRN Reason: IF RESP RATE LESS THAN 6 Ondansetron HCl (Zofran) 4 mg IV Q4H PRN PRN Reason: Nausea/Vomiting Sodium Chloride (Saline Flush) 10 ml FLUSH ASDIRECTED PRN PRN Reason: Keep Vein Open Witalejandra Medrano (Tucks) 1 pad TOP ASDIRECTED PRN PRN Reason: Hemorrhoids Discontinued Medications Ephedrine Sulfate (Ephedrine In Ns) Confirm Administered Dose 50 mg .ROUTE .STK- MED ONE Stop: 04/11/17 06:55 Last Admin: 04/11/17 12:40 Dose: Not Given Ephedrine Sulfate (Ephedrine In Ns) 5 - 10 mg IVPUSH ASDIRECTED PRN PRN Reason: SYSTOLIC BP LESS THAN 100 Last Admin: 04/11/17 07:05 Dose: 5 mg Penicillin G Potassium 5 (millunits/ Sodium Chloride) 50 mls @ 100 mls/hr IV ONETIME ONE Stop: 04/11/17 05:08 Last Admin: 04/11/17 05:17 Dose: 100 mls/hr Sodium Chloride (Normal Saline) 1,000 mls @ 150 mls/hr IV ASDIRECTED [facility] Last Admin: 04/11/17 05:19 Dose: 150 mls/hr Penicillin G Potassium 2.5 (millunits/ Sodium Chloride) 50 mls @ 100 mls/hr IV Q4H [facility] Last Admin: 04/11/17 08:55 Dose: 100 mls/hr Lactated Ringer's (Ringers, Lactated) 1,000 mls @ 999 mls/hr IV .BOLUS ONE Stop: 04/11/17 07:00 Last Admin: 04/11/17 06:10 Dose: 999 mls/hr Ropivacaine (Naropin 0.2%) Confirm Administered Dose 100 mls @ as directed .ROUTE .STK-MED ONE Stop: 04/11/17 07:29 Ropivacaine (Naropin 0.2%) 100 mls @ 0 mls/hr EPIDUR ASDIRECTED [facility]; Titrate PRN Reason: Protocol Last Titration: 04/11/17 09:30 Dose: 999 mls/hr - Infant Interaction Infant Disposition, : [place] in Room with Family Infant Interaction: Holding Feeding: Breastfed Infant; Nursed Well Support Person: - Recovery Exam Fundal Tone: Firm Fundal Level: At Umbilicus Fundal Placement: Midline Lochia Amount: Scant, Small Lochia Color: Rubra/Red Perineum Description: Intact, Minimal Bruising/Swelling Episiotomy/Laceration: Approximated Bladder Status: Palpable Urinary Elimination: Voided - Exam General: Alert, Oriented HEENT: Pupils Equal Neck: Supple Lungs: Clear to Auscultation, Normal Respiratory Effort Cardiovascular: Regular Rate, Regular Rhythm GI/Abdominal Exam: Normal Bowel Sounds, Soft, Non-Tender, No Organomegaly, No Distention, No Abnormal Bruit, No Mass, Pelvis Stable Extremities: Normal Inspection, Normal Range of Motion, Non-Tender, No Pedal Edema, Normal Capillary Refill Skin: Warm, Dry, Intact Wound/Incisions: Healing Well Neurological: No New Focal Deficit Psy/Mental Status: Alert, Normal Affect, Normal Mood - Problem List & Annotations (1) PIH ( induced hypertension) SNOMED Code(s): 75779217 Code(s): O13.9 - GESTATIONAL HTN W/O SIGNIFICANT PROTEINURIA, UNSP TRIMESTER Status: Acute Current Visit: Yes (2) Normal (single liveborn) SNOMED Code(s): 13059443 Code(s): Z38.2 - SINGLE LIVEBORN , UNSPECIFIED TO PLACE OF Status: Acute Current Visit: Yes (3) Normal labor and delivery SNOMED Code(s): 91901872 Code(s): O80 - ENCOUNTER FOR FULL-TERM UNCOMPLICATED DELIVERY Status: Acute Current Visit: Yes (4) SNOMED Code(s): 15123118 Code(s): Z34.90 - ENCNTR FOR SUPRVSN OF NORMAL , UNSP, UNSP TRIMESTER Status: Acute Current Visit: Yes Qualifiers: Weeks of gestation: 40 weeks Qualified Code(s): Z3A.40 - 40 weeks gestation of (5) SROM (spontaneous rupture of membranes) SNOMED Code(s): 995875203 Code(s): IMM9514 - Status: Acute Current Visit: Yes (6) Positive GBS test SNOMED Code(s): 7418771249198 Code(s): B95.1 - STREPTOCOCCUS, GROUP B, CAUSING DISEASES CLASSD ELSWHR Status: Acute Current Visit: No (7) Active labor at term SNOMED Code(s): 70061452 Code(s): XBD7259 - Status: Acute Current Visit: Yes - Problem List Review Problem List Initiated/Reviewed/Updated: Yes - My Orders Last 24 Hours: My Active Orders 04/11/17 10:16 Patient Status [ADT] Routine Vital Signs [RC] PFP Acetaminophen/Codeine [Tylenol with Codeine No.3 300MG/30MG] 1 tab PO Q4H PRN Benzocaine [Lizv-Y-Awayxxz 20% [place]] See Dose Instructions TOP Q4H PRN Ibuprofen [Motrin] 600 mg PO Q6H PRN Lanolin [Lansinoh HPA] 0 gm TOP ASDIRECTED PRN Witch Marcela [Tucks] 1 pad TOP ASDIRECTED PRN Assess Lochia [WOMSER] Per Unit Routine Assess Uterine Involution [WOMSER] Per Unit Routine 04/11/17 10:17 Ice Therapy [OM.PC] Per Unit Routine Perineal Care [OM.PC] Per Unit Routine Peripheral IV Discontinue [OM.PC] Routine Sitz Bath [OM.PC] Per Unit Routine 04/11/17 12:00 Docusate Sodium [Colace] 100 mg PO DAILY 04/11/17 13:15 [place] Catheter Insertion [Insert Urinary Catheter] [OM.PC] Q24H 04/11/17 Lunch Regular Diet [DIET] 04/12/17 09:21 Peripheral IV Discontinue [OM.PC] Routine - Assessment Assessment:: This 31 year old G5 now P3 without complications. PHI controlled with beta eric 2nd degree perineal tear with repair GBS positive and treated HGB 12, PLT 251 ABO A pos HIV neg Rubella immune 04/12/17 Feeling well HGB 10.2 going well repair tender, encouraged sitz bath today - Plan Plan:: 04/11/2017 31 yo at 40 2/7 weeks gestation here after SROM at home around 0315 SVE-360-70%/-3 Contractions stronger, still irregular FHTs category one Bishops Score-6 GBS positive-antibiotics initiated Plan- Augmentation with Pitocin per protocol Monitor for active labor Monitor FHTS Pain management per patient request Pen G for GBS per protocol Plan and anticipate a vaginal delivery 04/11/17 Routine care required 48 hour stay support 04/12/17 Home tomorrow Support
[2017-04-12] MEDS: Acetaminophen 325 MG Tab PO PRN (16:45)
[2017-04-12] MEDS: Ibuprofen 600 MG Tab PO PRN (18:59)
[2017-04-13 00:25] VITALS: BP 133/73
[2017-04-13] MEDS: Ibuprofen 600 MG Tab PO PRN (08:19)
[2017-04-13] MEDS: Docusate Sodium 100 MG Cap PO SCH (10:19)
[2017-04-13] MEDS: Acetaminophen 325 MG Tab PO PRN (10:20)
--- NOTE | 2017-04-13 10:32 | PCM.PNPP ---
- General Info Date of Service: 04/13/17 (PPD 2 D/C) Admission Dx/Problem (Free Text): Patient Status Order with Admit Dx/Problem 04/11/17 05:53 Patient Status [ADT] Routine Admission Diagnosis/Problem Admission Diagnosis/Problem Functional Status: Reports: Pain Controlled - Review of Systems General: Reports: No Symptoms HEENT: Reports: No Symptoms Pulmonary: Reports: No Symptoms Cardiovascular: Reports: No Symptoms Gastrointestinal: Reports: No Symptoms Genitourinary: Reports: No Symptoms Musculoskeletal: Reports: No Symptoms Skin: Reports: No Symptoms Neurological: Reports: No Symptoms Psychiatric: Reports: No Symptoms - General Info Date of Service: 04/13/17 - Patient Data Vital Signs - Most Recent: Last Vital Signs Temp 98.2 F 04/13/17 00:00 Pulse 86 04/13/17 00:00 Resp 18 04/13/17 00:00 BP 133/73 04/13/17 00:00 Pulse Ox 97 04/13/17 00:00 Weight - Most Recent: 265 lb I&O - Last 24 Hours: Intake & Output 04/12/17 04/13/17 04/13/17 22:59 06:59 14:59 Intake Total 800 120 Balance 800 120 Med Orders - Current: Current Medications Acetaminophen (Tylenol) 650 mg PO Q4H PRN PRN Reason: Pain (Mild 1-3) and fever Last Admin: 04/13/17 10:20 Dose: 650 mg Acetaminophen/Codeine Phosphate (Tylenol With Codeine No.3 300mg/30mg) 1 tab PO Q4H PRN PRN Reason: Pain (moderate 4-6) Benzocaine (Eijx-T-Hrnneeb 20% [place]) 0 gm TOP Q4H PRN PRN Reason: Perineal Comfort Measure Docusate Sodium (Colace) 100 mg PO DAILY [facility] Last Admin: 04/13/17 10:19 Dose: 100 mg Emollient Ointment (Lansinoh Hpa) 0 gm TOP ASDIRECTED PRN PRN Reason: Sore Nipples Last Admin: 04/13/17 08:18 Dose: 1 applic Lactated Ringer's (Ringers, Lactated) 1,000 mls @ 100 mls/hr IV ASDIRECTED [facility] Last Admin: 04/11/17 07:30 Dose: 100 mls/hr Ibuprofen (Motrin) 600 mg PO Q6H PRN PRN Reason: mild pain or fever Last Admin: 04/13/17 08:19 Dose: 600 mg Naloxone HCl (Narcan) 0.1 mg IVPUSH Q5M PRN PRN Reason: IF RESP RATE LESS THAN 6 Ondansetron HCl (Zofran) 4 mg IV Q4H PRN PRN Reason: Nausea/Vomiting Sodium Chloride (Saline Flush) 10 ml FLUSH ASDIRECTED PRN PRN Reason: Keep Vein Open Witch Marcela (Tucks) 1 pad TOP ASDIRECTED PRN PRN Reason: Hemorrhoids Discontinued Medications Ephedrine Sulfate (Ephedrine In Ns) Confirm Administered Dose 50 mg .ROUTE .STK- MED ONE Stop: 04/11/17 06:55 Last Admin: 04/11/17 12:40 Dose: Not Given Ephedrine Sulfate (Ephedrine In Ns) 5 - 10 mg IVPUSH ASDIRECTED PRN PRN Reason: SYSTOLIC BP LESS THAN 100 Last Admin: 04/11/17 07:05 Dose: 5 mg Fentanyl (Sublimaze) 100 mcg IVPUSH Q1H PRN PRN Reason: Pain (moderate 4-6) Last Admin: 04/11/17 06:18 Dose: 100 mcg Penicillin G Potassium 5 (millunits/ Sodium Chloride) 50 mls @ 100 mls/hr IV ONETIME ONE Stop: 04/11/17 05:08 Last Admin: 04/11/17 05:17 Dose: 100 mls/hr Sodium Chloride (Normal Saline) 1,000 mls @ 150 mls/hr IV ASDIRECTED SHADY Last Admin: 04/11/17 05:19 Dose: 150 mls/hr Penicillin G Potassium 2.5 (millunits/ Sodium Chloride) 50 mls @ 100 mls/hr IV Q4H SHADY Last Admin: 04/11/17 08:55 Dose: 100 mls/hr Oxytocin/Sodium Chloride (Pitocin In Ns 20 Units/1,000 Ml) 20 unit in 1,000 mls @ 6 mls/hr IV TITRATE SHADY; 2 MUNITS/MIN PRN Reason: Protocol Last Admin: 04/11/17 07:44 Dose: 1 munits/min, 3 mls/hr Lactated Ringer's (Ringers, Lactated) 1,000 mls @ 999 mls/hr IV .BOLUS ONE Stop: 04/11/17 07:00 Last Admin: 04/11/17 06:10 Dose: 999 mls/hr Ropivacaine (Naropin 0.2%) Confirm Administered Dose 100 mls @ as directed .ROUTE .STK-MED ONE Stop: 04/11/17 07:29 Ropivacaine (Naropin 0.2%) 100 mls @ 0 mls/hr EPIDUR ASDIRECTED SHADY; Titrate PRN Reason: Protocol Last Titration: 04/11/17 09:30 Dose: 999 mls/hr - Infant Interaction Disposition, : [place] in Room with Family Interaction: Holding Infant Feeding: Breastfed ; Nursed Well Support Person: - Recovery Exam Fundal Tone: Firm Fundal Level: At Umbilicus Fundal Placement: Midline Lochia Amount: Scant, Small Lochia Color: Rubra/Red Perineum Description: Intact, Minimal Bruising/Swelling Episiotomy/Laceration: Approximated Bladder Status: Palpable Urinary Elimination: Voided - Exam General: Alert, Oriented HEENT: Pupils Equal Neck: Supple Lungs: Clear to Auscultation, Normal Respiratory Effort Cardiovascular: Regular Rate, Regular Rhythm GI/Abdominal Exam: Normal Bowel Sounds, Soft, Non-Tender, No Organomegaly, No Distention, No Abnormal Bruit, No Mass, Pelvis Stable Extremities: Normal Inspection, Normal Range of Motion, Non-Tender, No Pedal Edema, Normal Capillary Refill Skin: Warm, Dry, Intact Wound/Incisions: Healing Well Neurological: No New Focal Deficit Psy/Mental Status: Alert, Normal Affect, Normal Mood - Problem List & Annotations (1) PIH ( induced hypertension) SNOMED Code(s): 95167340 Code(s): O13.9 - GESTATIONAL HTN W/O SIGNIFICANT PROTEINURIA, UNSP TRIMESTER Status: Acute Current Visit: Yes (2) Normal (single liveborn) SNOMED Code(s): 97791130 Code(s): Z38.2 - SINGLE LIVEBORN INFANT, UNSPECIFIED TO PLACE OF Status: Acute Current Visit: Yes (3) Normal labor and delivery SNOMED Code(s): 39757105 Code(s): O80 - ENCOUNTER FOR FULL-TERM UNCOMPLICATED DELIVERY Status: Acute Current Visit: Yes (4) SNOMED Code(s): 24486119 Code(s): Z34.90 - ENCNTR FOR SUPRVSN OF NORMAL , UNSP, UNSP TRIMESTER Status: Acute Current Visit: Yes Qualifiers: Weeks of gestation: 40 weeks Qualified Code(s): Z3A.40 - 40 weeks gestation of (5) SROM (spontaneous rupture of membranes) SNOMED Code(s): 426262406 Code(s): MKS1440 - Status: Acute Current Visit: Yes (6) Positive GBS test SNOMED Code(s): 6065031915257 Code(s): B95.1 - STREPTOCOCCUS, GROUP B, CAUSING DISEASES CLASSD [id number] Status: Acute Current Visit: No (7) Active labor at term SNOMED Code(s): 08552247 Code(s): CUV0386 - Status: Acute Current Visit: Yes - Problem List Review Problem List Initiated/Reviewed/Updated: Yes - Assessment Assessment:: This 31 year old G5 now P3 without complications. PHI controlled with beta eric 2nd degree perineal tear with repair GBS positive and treated HGB 12, PLT 251 ABO A pos HIV neg Rubella immune 04/12/17 Feeling well HGB 10.2 going well repair tender, encouraged sitz bath today 04/13/17 Feels much better today bottom not as tender Started beta eric yesterday, will continue post for 6 weeks if needed. - Plan Plan:: 04/11/2017 31 yo at 40 2/7 weeks gestation here after SROM at home around 0315 SVE-3/60-70%/-3 Contractions stronger, still irregular FHTs category one Bishops Score-6 GBS positive-antibiotics initiated Plan- Augmentation with Pitocin per protocol Monitor for active labor Monitor FHTS Pain management per patient request Pen G for GBS per protocol Plan and anticipate a vaginal delivery 04/11/17 Routine care required 48 hour stay support 04/12/17 Home tomorrow Support Home today See me in 6 weeks for a post visit. Blood pressure check in 2 weeks.
== END 2017-04-13 11:30 | disposition home or self-care (01) | DRG 775 ==
LOC: JP.OBCHECK 03:58 → JP.OB 04:27 → JP.MS 09:30 → OBSVTOIN 09:30
PROVIDERS: ADMIT Advanced Practice Midwife; ATTEND Advanced Practice Midwife
PROC: 10E0XZZ Delivery of Products of Conception, External Approach (ICD-10-PCS; principal; 2017-04-11)
PROC: 0KQM0ZZ Repair Perineum Muscle, Open Approach (ICD-10-PCS; 2017-04-11)
PROC: 00HU33Z Insertion of Infusion Device into Spinal Canal, Percutaneous Approach (ICD-10-PCS; 2017-04-11)
DX: O13.4 Gestational [pregnancy-induced] hypertension without significant proteinuria, complicating childbirth (principal); O99.824 Streptococcus B carrier state complicating childbirth; O70.1 Second degree perineal laceration during delivery; Z3A.40 40 weeks gestation of pregnancy; Z37.0 Single live birth; Z86.32 Personal history of gestational diabetes; Z87.891 Personal history of nicotine dependence
CPT/HCPCS: 36415; 59300; 59409; 80305; 81001; 85025; 99211; A9270-GY; J2540; J2590; J2795; J3010; J7040; J7050; J7120